=== PATIENT | female | born 1995 | race Two or more races ===

== ENCOUNTER 2020-06-05 03:55 | Inpatient (IN) | payer OTHER ==
[2020-06-05] MEDS ORDERED: SODIUM CHLORIDE 1,000 ML IV STA (05:00)
[2020-06-05] MEDS ORDERED: ONDANSETRON 4 MG/2 ML VIAL IVPUSH ONE (05:00)
[2020-06-05] MEDS ORDERED: ACETAMINOPHEN 1000 MG/100 ML VIAL (NON FORMULARY) IVPB ONE (05:01)
[2020-06-05] MEDS ORDERED: ONDANSETRON 4 MG/2 ML VIAL ONE (05:10)
[2020-06-05] MEDS ORDERED: ACETAMINOPHEN INJECTION 100 ML IVPB ONE (05:10)
[2020-06-05] MEDS ORDERED: MAG HYDROX/AL HYDROX/SIMETH -MYLANTA- ORAL SUSPENSION PO ONE (06:14)
[2020-06-05 06:29] LABS: BASO % 0.2 % (0-2.0); EOS % 0.4 % (0-4.5); HEMATOCRIT 44.8 % (32.4-45.2); HEMOGLOBIN 14.3 GM/dL (10.7-15.3); LYMPH % 7.8 % (8-40); MCH 26.7 pg (25.7-33.7); MCHC 31.9 g/dl (32.0-36.0); MEAN CELL VOLUME 83.7 fl (80-96); MEAN PLT VOLUME 8.4 fl (7.5-11.1); MONO % 6.5 % (3.8-10.2); NEUT % 85.1 % (42.8-82.8); PLATELET COUNT 208 K/MM3 (134-434); RBC 5.35 M/mm3 (3.60-5.2); RDW 18.7 % (11.6-15.6); WHITE BLOOD COUNT 16.4 K/mm3 (4.0-10.0)
[2020-06-05] MEDS ORDERED: MAG HYDROX/AL HYDROX/SIMETH 30 ML UNIT-DOSE CUP ONE (06:39)
[2020-06-05 06:45] LABS: EPI CELLS >36 /uL (0-25.1); HYALINE CASTS 5 /uL (0-3.1); PH,URINE 5.5 (5.0-8.0); URINE APPEARANCE CLOUDY; URINE BACTERIA 2300 /uL (0-1359); URINE BILIRUBIN NEGATIVE (NEGATIVE); URINE COLOR YELLOW; URINE GLUCOSE (UA) NEGATIVE (NEGATIVE); URINE KETONE 3+ (NEGATIVE); URINE LEUK ESTERASE NEGATIVE (NEGATIVE); URINE NITRITE NEGATIVE (NEGATIVE); URINE PROTEIN 1+ (NEGATIVE); URINE WBC 14 /uL (0-25.8); YEAST REVIEW (NEGATIVE)
[2020-06-05 06:56] LABS: URINE RBC 25 /uL (0-23.9)
[2020-06-05 07:14] LABS: CALCIUM 8.9 mg/dL (8.5-10.1)
[2020-06-05 07:15] LABS: ALBUMIN 3.5 g/dl (3.4-5.0); BLOOD UREA NITROGEN 6.1 mg/dL (7-18)
[2020-06-05 07:18] LABS: CREATININE 0.8 mg/dL (0.55-1.3)
[2020-06-05 07:19] LABS: BILIRUBIN,TOTAL 1.2 mg/dL (0.2-1); TOT PROT 7.8 g/dl (6.4-8.2)
[2020-06-05 07:26] LABS: POTASSIUM 6.3 mmol/L (3.5-5.1)
[2020-06-05] MEDS ORDERED: LACTATED RINGERS SOLUTION 1,000 ML/1,000 ML INFUS.BAG IV STA (07:28)
[2020-06-05] MEDS ORDERED: morphine CARPU-JECT 4 MG/1 ML DISP.SYRIN IVPUSH ONE ×2 (07:54→09:07)
[2020-06-05] MEDS ORDERED: morphine SULFATE 4 MG/ML VIAL ONE ×2 (07:56→09:07)
[2020-06-05 09:28] LABS: POTASSIUM 4.3 mmol/L (3.5-5.1)
[2020-06-05 09:30] LABS: CALCIUM 8.1 mg/dL (8.5-10.1)
[2020-06-05 09:31] LABS: ALBUMIN 3.3 g/dl (3.4-5.0); BLOOD UREA NITROGEN 4.8 mg/dL (7-18)
[2020-06-05 09:32] LABS: BILIRUBIN,DIRECT 0.1 mg/dL (0.0-0.2)
[2020-06-05 09:33] LABS: BILIRUBIN,DIRECT 0.2 mg/dL (0.0-0.2)
[2020-06-05 09:34] LABS: CREATININE 0.8 mg/dL (0.55-1.3)
[2020-06-05 09:35] LABS: BILIRUBIN,TOTAL 1.1 mg/dL (0.2-1); TOT PROT 6.8 g/dl (6.4-8.2)
[2020-06-05] MEDS ORDERED: PIPERACILLIN/TAZOB 3.375 GM 3.375 GM in DEXTROSE 5%-WATER - 50 ML IVPB ONE (09:51)
[2020-06-05] MEDS ORDERED: morphine CARPU-JECT 2 MG/1 ML DISP.SYRIN IVPUSH ONE (10:07)
[2020-06-05] MEDS ORDERED: PIPERACILLIN/TAZOB 3.375 GM 3.375 GM/50 ML BAG IVPB ONE (10:08)
[2020-06-05] MEDS ORDERED: MORPHINE SULFATE 2 MG/ML VIAL ONE (10:08)
[2020-06-05] MEDS ORDERED: LACTATED RINGERS SOLUTION 1,000 ML/1,000 ML INFUS.BAG IV ONE (11:00)
[2020-06-05] MEDS ORDERED: LACTATED RINGERS SOLUTION 1,000 ML/1,000 ML INFUS.BAG IV SCH (11:15)
[2020-06-05] MEDS ORDERED: HYDROmorphone HCL CARPU-JECT 2 MG/1 ML DISP.SYRIN IVPB ONE (12:31)
[2020-06-05] MEDS ORDERED: HYDROmorphone HCl 2 MG/ML VIAL ONE (12:33)
[2020-06-05] MEDS: LACTATED RINGERS SOLUTION 1,000 ML IV SCH ×2 (12:39→17:05)
[2020-06-05] MEDS: MORPHINE SULFATE 2 MG/ML VIAL IVPUSH PRN (17:00)
[2020-06-05] MEDS ORDERED: HYDROmorphone HCl 2 MG/ML VIAL IVPUSH ONE (18:03)
[2020-06-05] MEDS ORDERED: HYDROmorphone HCl 2 MG/ML VIAL IVPB ONE (18:37)
[2020-06-05] MEDS ORDERED: LORazepam 2 MG/ML SDV VIAL IVPUSH ONE (19:00)
[2020-06-05 20:13] VITALS: BMI 25.1
[2020-06-05] MEDS: CEFTRIAXONE 1 GM in DEXTROSE 5%-WATER - 50 ML IVPB SCH (21:08)
[2020-06-05 22:04] LABS: INR 1.21 (0.83-1.09); PROTHROMBIN TIME (PATIENT) 14.8 SEC (9.7-13.0)
[2020-06-05 22:07] LABS: ACTIVATED PTT 29.8 SECONDS (25.2-36.5)
[2020-06-06] MEDS ORDERED: SIMETHICONE 80 MG TAB.CHEW (FP) PO ONE (00:33)
[2020-06-06] MEDS: MORPHINE SULFATE 2 MG/ML VIAL IVPUSH PRN ×6 (00:36→21:57)
[2020-06-06] MEDS: LACTATED RINGERS SOLUTION 1,000 ML IV SCH ×2 (05:47→11:59)
[2020-06-06 07:03] LABS: COCAINE, UR NEGATIVE ng/ml (CUTOFF=300)
[2020-06-06 07:04] LABS: PHENCYCLIDINE,URINE NEGATIVE ng/ml (CUTOFF=25)
[2020-06-06 07:22] LABS: METHADONE, UR NEGATIVE ng/ml (CUTOFF=300); URINE AMPHETAMINES NEGATIVE ng/ml (CUTOFF=500); URINE BARBITURATES NEGATIVE ng/ml (CUTOFF=200); URINE BENZODIAZEPINES NEGATIVE ng/ml (CUTOFF=200)
[2020-06-06 07:42] LABS: OPIATES, URI POSITIVE ng/ml (CUTOFF=300)
[2020-06-06 09:36] LABS: HEMATOCRIT 38.1 % (32.4-45.2); MCH 26.3 pg (25.7-33.7); MCHC 31.5 g/dl (32.0-36.0); MEAN CELL VOLUME 83.7 fl (80-96); MEAN PLT VOLUME 8.1 fl (7.5-11.1); PLATELET COUNT 94 K/MM3 (134-434); RBC 4.56 M/mm3 (3.60-5.2); RDW 18.7 % (11.6-15.6); WHITE BLOOD COUNT 15.5 K/mm3 (4.0-10.0)
[2020-06-06 09:43] LABS: INR 1.47 (0.83-1.09); PROTHROMBIN TIME (PATIENT) 17.6 SEC (9.7-13.0)
[2020-06-06 09:45] LABS: ACTIVATED PTT 30.2 SECONDS (25.2-36.5)
[2020-06-06 09:58] LABS: POTASSIUM 3.2 mmol/L (3.5-5.1)
[2020-06-06 10:01] LABS: BLOOD UREA NITROGEN 4.1 mg/dL (7-18)
[2020-06-06 10:02] LABS: ALBUMIN 2.6 g/dl (3.4-5.0)
[2020-06-06 10:04] LABS: MAGNESIUM 1.1 mg/dL (1.8-2.4)
[2020-06-06 10:06] LABS: CREATININE 0.8 mg/dL (0.55-1.3)
[2020-06-06 10:07] LABS: BILIRUBIN,TOTAL 2.5 mg/dL (0.2-1); PHOSPHOROUS 1.7 mg/dL (2.5-4.9); TOT PROT 5.3 g/dl (6.4-8.2)
[2020-06-06] MEDS ORDERED: MAGNESIUM SULF 50% (8.12 MEQ/2 ML-1 GM VIAL) IVPB ONE (10:15)
[2020-06-06] MEDS ORDERED: DEXTROSE 50%-WATER 25 GM/50 ML DISP.SYRIN IVPUSH ONE (10:15)
[2020-06-06] MEDS: CEFTRIAXONE 1 GM in DEXTROSE 5%-WATER - 50 ML IVPB SCH (10:21)
[2020-06-06 10:23] LABS: CALCIUM 6.7 mg/dL (8.5-10.1)
[2020-06-06] MEDS: KCL 10 MEQ IVPB 10 MEQ/100 ML INFUS.BAG IVPB SCH ×3 (14:46→21:57)
[2020-06-07] MEDS: MORPHINE SULFATE 2 MG/ML VIAL IVPUSH PRN (01:53)
[2020-06-07] MEDS: LACTATED RINGERS SOLUTION 1,000 ML IV SCH ×3 (09:27→14:29)
[2020-06-07] MEDS: CEFTRIAXONE 1 GM in DEXTROSE 5%-WATER - 50 ML IVPB SCH (09:27)
[2020-06-07] MEDS: IBUPROFEN 800 MG/8 ML IJ IVPB PRN (11:14)
[2020-06-07 11:56] LABS: BASO % 0.2 % (0-2.0); EOS % 0.2 % (0-4.5); HEMATOCRIT 39.2 % (32.4-45.2); HEMOGLOBIN 12.4 GM/dL (10.7-15.3); LYMPH % 4.4 % (8-40); MCH 26.3 pg (25.7-33.7); MCHC 31.7 g/dl (32.0-36.0); MEAN CELL VOLUME 83.1 fl (80-96); MEAN PLT VOLUME 8.3 fl (7.5-11.1); MONO % 5.2 % (3.8-10.2); PLATELET COUNT 87 K/MM3 (134-434); RBC 4.71 M/mm3 (3.60-5.2); RDW 18.6 % (11.6-15.6); WHITE BLOOD COUNT 15.6 K/mm3 (4.0-10.0)
[2020-06-07 12:03] LABS: INR 1.15 (0.83-1.09); PROTHROMBIN TIME (PATIENT) 14.1 SEC (9.7-13.0)
[2020-06-07 12:05] LABS: ACTIVATED PTT 31.6 SECONDS (25.2-36.5)
[2020-06-07 12:15] LABS: POTASSIUM 3.4 mmol/L (3.5-5.1)
[2020-06-07 12:20] LABS: ALBUMIN 2.5 g/dl (3.4-5.0); BLOOD UREA NITROGEN 5.7 mg/dL (7-18); MAGNESIUM 1.8 mg/dL (1.8-2.4)
[2020-06-07 12:23] LABS: BILIRUBIN,DIRECT 1.3 mg/dL (0.0-0.2); CREATININE 0.7 mg/dL (0.55-1.3)
[2020-06-07 12:25] LABS: BILIRUBIN,TOTAL 2.8 mg/dL (0.2-1); TOT PROT 5.2 g/dl (6.4-8.2)
[2020-06-07] MEDS ORDERED: POTASSIUM CHLORIDE TABS 20 MEQ TABLET.ER (FP) PO ONE (12:45)
[2020-06-07] MEDS ORDERED: CALCIUM GLUCONATE 10% - 1,000 MG/10 ML VIAL IVPUSH ONE (13:00)
[2020-06-07 13:15] LABS: CALCIUM 6.5 mg/dL (8.5-10.1); PHOSPHOROUS 0.4 mg/dL (2.5-4.9)
[2020-06-07] MEDS ORDERED: POTASSIUM PHOSPHATE 30 MM in SODIUM CHLORIDE 500 ML IVPB ONE ×2 (13:30→23:00)
[2020-06-07] MEDS ORDERED: CALCIUM GLUCONATE 10% - 1,000 MG/10 ML VIAL IVPB ONE (13:30)
[2020-06-07 14:25] LABS: PLATELET ESTIMATE DECREASED
[2020-06-07 14:49] LABS: EPI CELLS 19 /uL (0-25.1); HYALINE CASTS 1 /uL (0-3.1); URINE APPEARANCE CLEAR; URINE BACTERIA 32 /uL (0-1359); URINE BILIRUBIN NEGATIVE (NEGATIVE); URINE COLOR DK YELLOW; URINE GLUCOSE (UA) NEGATIVE (NEGATIVE); URINE KETONE TRACE (NEGATIVE); URINE LEUK ESTERASE NEGATIVE (NEGATIVE); URINE NITRITE NEGATIVE (NEGATIVE); URINE PROTEIN TRACE (NEGATIVE); URINE RBC 9 /uL (0-23.9); URINE WBC 6 /uL (0-25.8)
[2020-06-07 22:24] LABS: POTASSIUM 3.6 mmol/L (3.5-5.1)
[2020-06-07 22:26] LABS: BLOOD UREA NITROGEN 6.2 mg/dL (7-18)
[2020-06-07 22:29] LABS: CREATININE 0.5 mg/dL (0.55-1.3); PHOSPHOROUS 1.2 mg/dL (2.5-4.9)
[2020-06-07 22:32] LABS: CALCIUM 6.7 mg/dL (8.5-10.1)
[2020-06-08] MEDS ORDERED: POTASSIUM PHOSPHATE 30 MM in SODIUM CHLORIDE 500 ML IVPB ONE (02:45)
[2020-06-08] MEDS: KCL 10 MEQ IVPB 10 MEQ/100 ML INFUS.BAG IVPB SCH ×2 (04:04→06:26)
[2020-06-08] MEDS: IBUPROFEN 800 MG/8 ML IJ IVPB PRN ×2 (04:22→20:47)
[2020-06-08 08:35] LABS: INR 1.15 (0.83-1.09); PROTHROMBIN TIME (PATIENT) 13.9 SEC (9.7-13.0)
[2020-06-08 08:38] LABS: ACTIVATED PTT 31.9 SECONDS (25.2-36.5)
[2020-06-08 08:39] LABS: POTASSIUM 3.8 mmol/L (3.5-5.1)
[2020-06-08 08:44] LABS: BASO % 0.3 % (0-2.0); EOS % 0.5 % (0-4.5); HEMATOCRIT 31.8 % (32.4-45.2); HEMOGLOBIN 10.2 GM/dL (10.7-15.3); LYMPH % 5.9 % (8-40); MCH 26.6 pg (25.7-33.7); MEAN PLT VOLUME 8.3 fl (7.5-11.1); MONO % 6.1 % (3.8-10.2); NEUT % 87.2 % (42.8-82.8); PLATELET COUNT 89 K/MM3 (134-434); RBC 3.84 M/mm3 (3.60-5.2); RDW 18.4 % (11.6-15.6); WHITE BLOOD COUNT 12.7 K/mm3 (4.0-10.0)
[2020-06-08 08:58] LABS: ALBUMIN 2.1 g/dl (3.4-5.0); BLOOD UREA NITROGEN 4.9 mg/dL (7-18); MAGNESIUM 1.9 mg/dL (1.8-2.4)
[2020-06-08 09:01] LABS: CREATININE 0.4 mg/dL (0.55-1.3)
[2020-06-08 09:03] LABS: TOT PROT 4.6 g/dl (6.4-8.2)
[2020-06-08] MEDS: CEFTRIAXONE 1 GM in DEXTROSE 5%-WATER - 50 ML IVPB SCH (09:47)
[2020-06-08 10:41] LABS: CALCIUM 6.5 mg/dL (8.5-10.1)
[2020-06-08] MEDS ORDERED: CALCIUM GLUCONATE 10% - 1,000 MG/10 ML VIAL IVPB ONE (12:00)
[2020-06-08] MEDS: NAPH,MB-DB/K PH,MBDB POWDER PACKET PO SCH ×2 (13:59→21:37)
[2020-06-08 15:38] LABS: ANISOCYTOSIS 0; MACROCYTOSIS 0; PLATELET ESTIMATE DECREASED; TARGET CELLS 1+
[2020-06-08] MEDS: LACTATED RINGERS SOLUTION 1,000 ML IV SCH (15:39)
[2020-06-09] MEDS: CEFTRIAXONE 1 GM in DEXTROSE 5%-WATER - 50 ML IVPB SCH (09:15)
[2020-06-09] MEDS: NAPH,MB-DB/K PH,MBDB POWDER PACKET PO SCH ×2 (09:15→21:15)
[2020-06-09] MEDS: IBUPROFEN 800 MG/8 ML IJ IVPB PRN ×2 (10:09→21:14)
[2020-06-09 13:22] LABS: BASO % 0.2 % (0-2.0); EOS % 0.8 % (0-4.5); HEMATOCRIT 28.8 % (32.4-45.2); HEMOGLOBIN 9.1 GM/dL (10.7-15.3); LYMPH % 5.7 % (8-40); MCH 26.3 pg (25.7-33.7); MCHC 31.7 g/dl (32.0-36.0); MEAN CELL VOLUME 82.8 fl (80-96); MEAN PLT VOLUME 7.5 fl (7.5-11.1); NEUT % 87.3 % (42.8-82.8); PLATELET COUNT 110 K/MM3 (134-434); RBC 3.48 M/mm3 (3.60-5.2); RDW 19.1 % (11.6-15.6); WHITE BLOOD COUNT 12.7 K/mm3 (4.0-10.0)
[2020-06-09 13:44] LABS: POTASSIUM 3.7 mmol/L (3.5-5.1)
[2020-06-09 13:46] LABS: BLOOD UREA NITROGEN 4.1 mg/dL (7-18); MAGNESIUM 1.8 mg/dL (1.8-2.4)
[2020-06-09 13:49] LABS: CREATININE 0.3 mg/dL (0.55-1.3); PHOSPHOROUS 1.9 mg/dL (2.5-4.9)
[2020-06-09 13:51] LABS: BILIRUBIN,TOTAL 1.2 mg/dL (0.2-1); TOT PROT 4.5 g/dl (6.4-8.2)
[2020-06-09] MEDS: FOLIC ACID 1 MG TABLET (FP) PO SCH (14:07)
[2020-06-09] MEDS: MULTIVITAMINS (DAILY MVI) TABLET (FP) PO SCH (14:07)
[2020-06-09] MEDS: LACTATED RINGERS SOLUTION 1,000 ML IV SCH (14:07)
[2020-06-09 14:08] LABS: CALCIUM 6.7 mg/dL (8.5-10.1)
[2020-06-09] MEDS ORDERED: LACTATED RINGERS SOLUTION 1,000 ML IV SCH (14:17)
[2020-06-09] MEDS ORDERED: CALCIUM GLUCONATE 10% - 1,000 MG/10 ML VIAL IVPUSH ONE (14:20)
[2020-06-09] MEDS ORDERED: CALCIUM GLUCONATE 10% - 1,000 MG/10 ML VIAL IVPB ONE (15:30)
[2020-06-09 16:04] LABS: ANISOCYTOSIS 1+; MACROCYTOSIS 0; PLATELET ESTIMATE DECREASED; TEAR DROP CELLS 1+
[2020-06-09] MEDS ORDERED: ZOLPIDEM TARTRATE 5 MG TABLET PO PRN (16:19)
[2020-06-09] MEDS: THIAMINE HCL 100 MG TABLET (FP) PO SCH (17:50)
[2020-06-10] MEDS: IBUPROFEN 800 MG/8 ML IJ IVPB PRN (05:01)
[2020-06-10] MEDS ORDERED: MEROPENEM 1 GM in DEXTROSE 5%-WATER 100 ML IVPB ONE (08:05)
[2020-06-10 09:27] LABS: BASO % 0.1 % (0-2.0); EOS % 1.2 % (0-4.5); HEMATOCRIT 31.7 % (32.4-45.2); HEMOGLOBIN 10.1 GM/dL (10.7-15.3); LYMPH % 8.2 % (8-40); MCH 25.9 pg (25.7-33.7); MCHC 31.7 g/dl (32.0-36.0); MEAN CELL VOLUME 81.8 fl (80-96); MEAN PLT VOLUME 7.3 fl (7.5-11.1); MONO % 10.2 % (3.8-10.2); NEUT % 80.3 % (42.8-82.8); PLATELET COUNT 150 K/MM3 (134-434); RBC 3.88 M/mm3 (3.60-5.2); RDW 18.6 % (11.6-15.6); WHITE BLOOD COUNT 14.1 K/mm3 (4.0-10.0)
[2020-06-10 09:34] LABS: INR 1.11 (0.83-1.09); PROTHROMBIN TIME (PATIENT) 13.4 SEC (9.7-13.0)
[2020-06-10 09:47] LABS: POTASSIUM 3.3 mmol/L (3.5-5.1)
[2020-06-10] MEDS: THIAMINE HCL 100 MG TABLET (FP) PO SCH (09:53)
[2020-06-10] MEDS: CEFTRIAXONE 1 GM in DEXTROSE 5%-WATER - 50 ML IVPB SCH (09:53)
[2020-06-10] MEDS: MULTIVITAMINS (DAILY MVI) TABLET (FP) PO SCH (09:54)
[2020-06-10] MEDS: NAPH,MB-DB/K PH,MBDB POWDER PACKET PO SCH ×2 (09:54→21:17)
[2020-06-10] MEDS: FOLIC ACID 1 MG TABLET (FP) PO SCH (09:54)
[2020-06-10] MEDS: LACTATED RINGERS SOLUTION 1,000 ML IV SCH (09:55)
[2020-06-10 09:59] LABS: AMYLASE 74 U/L (25-115); LIPASE 304 U/L (73-393)
[2020-06-10 10:10] LABS: CALCIUM 7.7 mg/dL (8.5-10.1)
[2020-06-10 10:11] LABS: ALBUMIN 2.3 g/dl (3.4-5.0); BLOOD UREA NITROGEN 3.6 mg/dL (7-18); MAGNESIUM 1.8 mg/dL (1.8-2.4)
[2020-06-10 10:14] LABS: CREATININE 0.3 mg/dL (0.55-1.3); PHOSPHOROUS 2.2 mg/dL (2.5-4.9)
[2020-06-10 10:15] LABS: TOT PROT 5.2 g/dl (6.4-8.2)
[2020-06-10 10:30] LABS: BILIRUBIN,TOTAL 1.6 mg/dL (0.2-1)
[2020-06-10 13:29] LABS: ANISOCYTOSIS 1+; MACROCYTOSIS 1+; PLATELET ESTIMATE DECREASED; TARGET CELLS 2+
[2020-06-10] MEDS ORDERED: POTASSIUM CHLORIDE ORAL LIQUID 20 MEQ/15 ML PO ONE (14:09)
[2020-06-10] MEDS ORDERED: ACETAMINOPHEN 325 MG TABLET (FP) PO ONE (20:12)
[2020-06-11 09:10] LABS: BASO % 0.1 % (0-2.0); EOS % 1.1 % (0-4.5); HEMATOCRIT 31.2 % (32.4-45.2); HEMOGLOBIN 10.1 GM/dL (10.7-15.3); LYMPH % 8.5 % (8-40); MCH 26.3 pg (25.7-33.7); MCHC 32.2 g/dl (32.0-36.0); MEAN CELL VOLUME 81.5 fl (80-96); MEAN PLT VOLUME 7.1 fl (7.5-11.1); MONO % 13.9 % (3.8-10.2); NEUT % 76.4 % (42.8-82.8); PLATELET COUNT 230 K/MM3 (134-434); RBC 3.83 M/mm3 (3.60-5.2); RDW 18.6 % (11.6-15.6); WHITE BLOOD COUNT 16.8 K/mm3 (4.0-10.0)
[2020-06-11 09:30] LABS: POTASSIUM 3.5 mmol/L (3.5-5.1)
[2020-06-11 09:33] LABS: CALCIUM 7.6 mg/dL (8.5-10.1)
[2020-06-11 09:34] LABS: ALBUMIN 2.4 g/dl (3.4-5.0)
[2020-06-11 09:37] LABS: CREATININE 0.3 mg/dL (0.55-1.3); PHOSPHOROUS 2.8 mg/dL (2.5-4.9)
[2020-06-11 09:38] LABS: BILIRUBIN,TOTAL 0.8 mg/dL (0.2-1)
[2020-06-11 09:39] LABS: TOT PROT 5.7 g/dl (6.4-8.2)
[2020-06-11 09:59] LABS: MAGNESIUM 1.8 mg/dL (1.8-2.4)
[2020-06-11 10:14] LABS: BLOOD UREA NITROGEN 2.4 mg/dL (7-18)
[2020-06-11] MEDS: MULTIVITAMINS (DAILY MVI) TABLET (FP) PO SCH (10:18)
[2020-06-11] MEDS: FOLIC ACID 1 MG TABLET (FP) PO SCH (10:18)
[2020-06-11] MEDS: NAPH,MB-DB/K PH,MBDB POWDER PACKET PO SCH ×2 (10:18→21:15)
[2020-06-11] MEDS: LACTATED RINGERS SOLUTION 1,000 ML IV SCH (10:19)
[2020-06-11] MEDS: THIAMINE HCL 100 MG TABLET (FP) PO SCH (10:19)
[2020-06-11 11:04] LABS: ANISOCYTOSIS 0; MACROCYTOSIS 0; PLATELET ESTIMATE NORMAL; TARGET CELLS 2+
[2020-06-11] MEDS: CEFTRIAXONE 1 GM in DEXTROSE 5%-WATER - 50 ML IVPB SCH (12:46)
[2020-06-11] MEDS ORDERED: PIPERACILLIN/TAZOB 3.375 GM 3.375 GM in DEXTROSE 5%-WATER - 50 ML IVPB SCH (20:30)
[2020-06-11] MEDS: ACETAMINOPHEN 325 MG TABLET (FP) PO PRN (21:15)
[2020-06-11] MEDS: PIPERACILLIN/TAZOB 3.375 GM 3.375 GM in DEXTROSE 5%-WATER - 50 ML IVPB SCH (21:46)
[2020-06-12] MEDS: PIPERACILLIN/TAZOB 3.375 GM 3.375 GM in DEXTROSE 5%-WATER - 50 ML IVPB SCH ×3 (02:54→17:36)
[2020-06-12 08:40] LABS: BASO % 0.2 % (0-2.0); EOS % 0.7 % (0-4.5); HEMATOCRIT 27.5 % (32.4-45.2); LYMPH % 7.5 % (8-40); MCH 26.4 pg (25.7-33.7); MCHC 32.8 g/dl (32.0-36.0); MEAN CELL VOLUME 80.4 fl (80-96); MONO % 14.6 % (3.8-10.2); PLATELET COUNT 247 K/MM3 (134-434); RBC 3.42 M/mm3 (3.60-5.2); RDW 18.5 % (11.6-15.6); WHITE BLOOD COUNT 14.2 K/mm3 (4.0-10.0)
[2020-06-12 08:49] LABS: POTASSIUM 3.3 mmol/L (3.5-5.1)
[2020-06-12 08:53] LABS: ALBUMIN 2.1 g/dl (3.4-5.0)
[2020-06-12 08:54] LABS: CALCIUM 7.4 mg/dL (8.5-10.1)
[2020-06-12 08:55] LABS: MAGNESIUM 1.9 mg/dL (1.8-2.4)
[2020-06-12 08:58] LABS: CREATININE 0.3 mg/dL (0.55-1.3); PHOSPHOROUS 3.5 mg/dL (2.5-4.9)
[2020-06-12 08:59] LABS: BILIRUBIN,TOTAL 0.7 mg/dL (0.2-1); TOT PROT 4.9 g/dl (6.4-8.2)
[2020-06-12 09:52] LABS: ANISOCYTOSIS 2+; MACROCYTOSIS 0; PLATELET ESTIMATE NORMAL; TARGET CELLS 2+; TEAR DROP CELLS 1+
[2020-06-12] MEDS: LACTATED RINGERS SOLUTION 1,000 ML IV SCH (11:07)
[2020-06-12] MEDS: THIAMINE HCL 100 MG TABLET (FP) PO SCH (11:08)
[2020-06-12] MEDS: MULTIVITAMINS (DAILY MVI) TABLET (FP) PO SCH (11:08)
[2020-06-12] MEDS: FOLIC ACID 1 MG TABLET (FP) PO SCH (11:08)
[2020-06-12] MEDS: NAPH,MB-DB/K PH,MBDB POWDER PACKET PO SCH ×2 (11:08→21:04)
[2020-06-12] MEDS ORDERED: CHOLESTYRAMINE/SUCROSE 4 GM PACKET PO SCH (13:15)
[2020-06-12] MEDS ORDERED: CHOLESTYRAMINE/ASPARTAME 4 GM PACKET PO SCH (14:02)
[2020-06-13] MEDS: PIPERACILLIN/TAZOB 3.375 GM 3.375 GM in DEXTROSE 5%-WATER - 50 ML IVPB SCH ×4 (03:15→17:48)
[2020-06-13 08:24] LABS: BASO % 0.1 % (0-2.0); EOS % 0.5 % (0-4.5); HEMATOCRIT 31.9 % (32.4-45.2); HEMOGLOBIN 10.1 GM/dL (10.7-15.3); LYMPH % 9.3 % (8-40); MCH 25.9 pg (25.7-33.7); MCHC 31.7 g/dl (32.0-36.0); MEAN CELL VOLUME 81.9 fl (80-96); MEAN PLT VOLUME 7.3 fl (7.5-11.1); NEUT % 80.1 % (42.8-82.8); PLATELET COUNT 358 K/MM3 (134-434); RDW 18.4 % (11.6-15.6); WHITE BLOOD COUNT 14.6 K/mm3 (4.0-10.0)
[2020-06-13 08:33] LABS: INR 1.2 (0.83-1.09); PROTHROMBIN TIME (PATIENT) 14.7 SEC (9.7-13.0)
[2020-06-13 08:42] LABS: POTASSIUM 3.5 mmol/L (3.5-5.1)
[2020-06-13 08:44] LABS: CALCIUM 8.3 mg/dL (8.5-10.1)
[2020-06-13 08:45] LABS: ALBUMIN 2.5 g/dl (3.4-5.0); MAGNESIUM 2.1 mg/dL (1.8-2.4)
[2020-06-13 08:48] LABS: CREATININE 0.4 mg/dL (0.55-1.3)
[2020-06-13 08:49] LABS: IRON SERUM 20 ug/dL (50-175); TOTAL IRON BINDING CAPACITY 168 ug/dL (250-450)
[2020-06-13 08:50] LABS: BILIRUBIN,TOTAL 0.7 mg/dL (0.2-1)
[2020-06-13 08:55] LABS: BLOOD UREA NITROGEN 2.6 mg/dL (7-18)
[2020-06-13] MEDS: THIAMINE HCL 100 MG TABLET (FP) PO SCH (10:20)
[2020-06-13] MEDS: NAPH,MB-DB/K PH,MBDB POWDER PACKET PO SCH ×2 (10:20→22:05)
[2020-06-13] MEDS: LACTATED RINGERS SOLUTION 1,000 ML IV SCH (10:21)
[2020-06-13] MEDS: MULTIVITAMINS (DAILY MVI) TABLET (FP) PO SCH (10:21)
[2020-06-13] MEDS: FOLIC ACID 1 MG TABLET (FP) PO SCH (10:21)
[2020-06-13 10:24] LABS: ANISOCYTOSIS 0; MACROCYTOSIS 1+; PLATELET ESTIMATE NORMAL; TARGET CELLS 1+
[2020-06-13] MEDS ORDERED: IRON SUCROSE INJECTION 200 MG in SODIUM CHLORIDE 90 ML IVPB ONE (14:31)
[2020-06-13] MEDS: ACETAMINOPHEN 325 MG TABLET (FP) PO PRN (18:40)
[2020-06-14] MEDS: PIPERACILLIN/TAZOB 3.375 GM 3.375 GM in DEXTROSE 5%-WATER - 50 ML IVPB SCH ×3 (02:10→17:09)
[2020-06-14] MEDS: MULTIVITAMINS (DAILY MVI) TABLET (FP) PO SCH (09:47)
[2020-06-14] MEDS: THIAMINE HCL 100 MG TABLET (FP) PO SCH (09:47)
[2020-06-14] MEDS: FOLIC ACID 1 MG TABLET (FP) PO SCH (09:47)
[2020-06-14] MEDS: NAPH,MB-DB/K PH,MBDB POWDER PACKET PO SCH ×2 (09:47→21:00)
[2020-06-14 10:09] LABS: BASO % 0.5 % (0-2.0); EOS % 0.6 % (0-4.5); HEMATOCRIT 30.6 % (32.4-45.2); HEMOGLOBIN 9.7 GM/dL (10.7-15.3); LYMPH % 5.9 % (8-40); MCH 26.1 pg (25.7-33.7); MCHC 31.8 g/dl (32.0-36.0); MEAN CELL VOLUME 82.1 fl (80-96); MEAN PLT VOLUME 7.4 fl (7.5-11.1); MONO % 7.2 % (3.8-10.2); NEUT % 85.8 % (42.8-82.8); PLATELET COUNT 455 K/MM3 (134-434); RBC 3.73 M/mm3 (3.60-5.2); RDW 19.1 % (11.6-15.6); WHITE BLOOD COUNT 19.6 K/mm3 (4.0-10.0)
[2020-06-14 10:32] LABS: CALCIUM 8.5 mg/dL (8.5-10.1)
[2020-06-14 10:36] LABS: ALBUMIN 2.5 g/dl (3.4-5.0); CREATININE 0.5 mg/dL (0.55-1.3)
[2020-06-14 10:37] LABS: BILIRUBIN,TOTAL 0.7 mg/dL (0.2-1); TOT PROT 5.9 g/dl (6.4-8.2)
[2020-06-14 11:00] LABS: BLOOD UREA NITROGEN 2.2 mg/dL (7-18)
[2020-06-14 11:59] LABS: ANISOCYTOSIS 0; MACROCYTOSIS 0; OVALOCYTE 1+; PLATELET ESTIMATE NORMAL; TARGET CELLS 1+
[2020-06-15] MEDS: PIPERACILLIN/TAZOB 3.375 GM 3.375 GM in DEXTROSE 5%-WATER - 50 ML IVPB SCH (02:16)
[2020-06-15 08:46] LABS: BASO % 0.1 % (0-2.0); EOS % 0.4 % (0-4.5); HEMATOCRIT 28.9 % (32.4-45.2); HEMOGLOBIN 9.3 GM/dL (10.7-15.3); LYMPH % 5.2 % (8-40); MCH 26.4 pg (25.7-33.7); MCHC 32.3 g/dl (32.0-36.0); MEAN CELL VOLUME 81.6 fl (80-96); MEAN PLT VOLUME 7.6 fl (7.5-11.1); MONO % 8.2 % (3.8-10.2); NEUT % 86.1 % (42.8-82.8); PLATELET COUNT 571 K/MM3 (134-434); RBC 3.54 M/mm3 (3.60-5.2); RDW 19.1 % (11.6-15.6); WHITE BLOOD COUNT 21.4 K/mm3 (4.0-10.0)
[2020-06-15 09:03] LABS: POTASSIUM 3.9 mmol/L (3.5-5.1)
[2020-06-15 09:14] LABS: ALBUMIN 2.5 g/dl (3.4-5.0); CALCIUM 8.5 mg/dL (8.5-10.1)
[2020-06-15 09:17] LABS: CREATININE 0.5 mg/dL (0.55-1.3)
[2020-06-15 09:18] LABS: BILIRUBIN,TOTAL 0.9 mg/dL (0.2-1)
[2020-06-15 09:19] LABS: TOT PROT 5.9 g/dl (6.4-8.2)
[2020-06-15 09:40] LABS: BLOOD UREA NITROGEN 2.1 mg/dL (7-18)
[2020-06-15 10:13] LABS: ANISOCYTOSIS 2+; MACROCYTOSIS 0; PLATELET ESTIMATE INCREASED; TARGET CELLS 2+
[2020-06-15] MEDS: NAPH,MB-DB/K PH,MBDB POWDER PACKET PO SCH ×2 (11:04→21:02)
[2020-06-15] MEDS: FOLIC ACID 1 MG TABLET (FP) PO SCH (11:05)
[2020-06-15] MEDS: MULTIVITAMINS (DAILY MVI) TABLET (FP) PO SCH (11:05)
[2020-06-15] MEDS: IMIPENEM/CILASTATIN SODIUM 500 MG in SODIUM CHLORIDE 100 ML IVPB SCH ×2 (11:05→17:44)
[2020-06-15] MEDS: THIAMINE HCL 100 MG TABLET (FP) PO SCH (11:05)
[2020-06-15] MEDS: LACTATED RINGERS SOLUTION 1,000 ML/1,000 ML INFUS.BAG IV SCH (15:44)
[2020-06-15] MEDS ORDERED: LACTATED RINGERS SOLUTION 1,000 ML/1,000 ML INFUS.BAG IV SCH (15:45)
[2020-06-16] MEDS: IMIPENEM/CILASTATIN SODIUM 500 MG in SODIUM CHLORIDE 100 ML IVPB SCH ×3 (01:43→17:09)
[2020-06-16 09:13] LABS: BASO % 0.4 % (0-2.0); EOS % 0.5 % (0-4.5); HEMOGLOBIN 8.5 GM/dL (10.7-15.3); MCH 25.9 pg (25.7-33.7); MCHC 31.5 g/dl (32.0-36.0); MEAN CELL VOLUME 82.4 fl (80-96); MONO % 8.8 % (3.8-10.2); NEUT % 83.3 % (42.8-82.8); PLATELET COUNT 540 K/MM3 (134-434); RBC 3.28 M/mm3 (3.60-5.2); RDW 18.8 % (11.6-15.6)
[2020-06-16 09:16] LABS: CHLORIDE 106 mmol/L (98-107); POTASSIUM 3.9 mmol/L (3.5-5.1); SODIUM 139 mmol/L (136-145)
[2020-06-16 09:18] LABS: CALCIUM 8.3 mg/dL (8.5-10.1)
[2020-06-16 09:19] LABS: ALBUMIN 2.2 g/dl (3.4-5.0); ANION GAP 6 MMOL/L (8-16); CO2 28 mmol/L (21-32); GLUCOSE,RANDOM 78 mg/dL (74-106)
[2020-06-16 09:22] LABS: CREATININE 0.4 mg/dL (0.55-1.3); SGOT/AST 17 U/L (15-37); SGPT/ALT 11 U/L (13-61)
[2020-06-16 09:23] LABS: BILIRUBIN,TOTAL 0.6 mg/dL (0.2-1); TOT PROT 5.5 g/dl (6.4-8.2)
[2020-06-16 09:25] LABS: ALK PHOS 92 U/L (45-117)
[2020-06-16 09:32] LABS: BLOOD UREA NITROGEN < 1.0 mg/dL (7-18)
[2020-06-16] MEDS: FOLIC ACID 1 MG TABLET (FP) PO SCH (09:34)
[2020-06-16] MEDS: MULTIVITAMINS (DAILY MVI) TABLET (FP) PO SCH (09:34)
[2020-06-16] MEDS: NAPH,MB-DB/K PH,MBDB POWDER PACKET PO SCH (09:34)
[2020-06-16] MEDS: THIAMINE HCL 100 MG TABLET (FP) PO SCH (09:34)
[2020-06-16] MEDS ORDERED: FERROUS SO4 325 MG TABLET (FP) PO SCH (14:30)
[2020-06-16] MEDS: LACTATED RINGERS SOLUTION 1,000 ML/1,000 ML INFUS.BAG IV SCH (15:11)
[2020-06-16 23:13] VITALS: BP 132/79; PULSE 117; TEMP 99
== END 2020-06-16 21:00 | disposition short-term general hospital (02) | DRG 282 ==
LOC: JER 03:55 → JERBED 11:27 → J5WEST-2 16:38
DX: K85.20 Alcohol induced acute pancreatitis without necrosis or infection (principal); A41.9 Sepsis, unspecified organism; E83.42 Hypomagnesemia; E83.51 Hypocalcemia; R18.8 Other ascites; F10.10 Alcohol abuse, uncomplicated; K86.3 Pseudocyst of pancreas; N80.9 Endometriosis, unspecified; E87.6 Hypokalemia; N83.201 Unspecified ovarian cyst, right side; R94.5 Abnormal results of liver function studies; K76.0 Fatty (change of) liver, not elsewhere classified; J98.11 Atelectasis; E66.9 Obesity, unspecified; Z68.25 Body mass index [BMI] 25.0-25.9, adult; R19.7 Diarrhea, unspecified; D50.9 Iron deficiency anemia, unspecified
CPT/HCPCS: 36415; 71045-TC-FY; 74170-TC; 74176-TC; 74178-TC; 74181-TC; 76705-TC; 76830-TC; 80048; 80053; 80061; 80076; 80307; 81003; 82150; 82248; 82330; 82787; 82962; 83036; 83540; 83550; 83690; 83721; 83735; 84100; 84439; 84443; 84703; 85025; 85027; 85610; 85730; 86038; 86140; 87040; 87045; 87046; 87086; 87324; 87449; 94010; 99285-25; C9803; J0131; J1756; Q9967; U0003

== ENCOUNTER 2020-06-27 16:17 | Inpatient (IN) | payer OTHER ==
[2020-06-27 16:29] VITALS: BMI 24.0
[2020-06-27] MEDS ORDERED: ACETAMINOPHEN 1000 MG/100 ML VIAL (NON FORMULARY) IVPB ONE (16:33)
[2020-06-27] MEDS ORDERED: morphine CARPU-JECT 4 MG/1 ML DISP.SYRIN IVPUSH ONE ×2 (16:33→20:32)
[2020-06-27] MEDS ORDERED: morphine SULFATE 4 MG/ML VIAL ONE ×2 (16:41→21:50)
[2020-06-27] MEDS ORDERED: ACETAMINOPHEN INJECTION 100 ML IVPB ONE (16:42)
[2020-06-27] MEDS ORDERED: SODIUM CHLORIDE 1,000 ML IV SCH (16:45)
[2020-06-27 17:03] LABS: BASO % 1.8 % (0-2.0); EOS % 1.8 % (0-4.5); HEMATOCRIT 39.2 % (32.4-45.2); HEMOGLOBIN 12.2 GM/dL (10.7-15.3); LYMPH % 14.4 % (8-40); MCHC 31.1 g/dl (32.0-36.0); MEAN CELL VOLUME 83.5 fl (80-96); MEAN PLT VOLUME 7.4 fl (7.5-11.1); MONO % 5.8 % (3.8-10.2); NEUT % 76.2 % (42.8-82.8); PLATELET COUNT 625 K/MM3 (134-434); RBC 4.69 M/mm3 (3.60-5.2); RDW 18.3 % (11.6-15.6)
[2020-06-27 17:08] LABS: INR 1.08 (0.83-1.09)
[2020-06-27 17:11] LABS: ACTIVATED PTT 32.7 SECONDS (25.2-36.5)
[2020-06-27 17:12] LABS: POTASSIUM 3.8 mmol/L (3.5-5.1)
[2020-06-27 17:17] LABS: ALBUMIN 3.6 g/dl (3.4-5.0); BLOOD UREA NITROGEN 6.9 mg/dL (7-18); CALCIUM 9.5 mg/dL (8.5-10.1); MAGNESIUM 1.8 mg/dL (1.8-2.4)
[2020-06-27 17:19] LABS: CREATININE 1.2 mg/dL (0.55-1.3); PHOSPHOROUS 4.2 mg/dL (2.5-4.9)
[2020-06-27 17:21] LABS: BILIRUBIN,TOTAL 0.7 mg/dL (0.2-1)
[2020-06-27 17:27] LABS: TOT PROT 7.9 g/dl (6.4-8.2)
[2020-06-28] MEDS ORDERED: morphine SULFATE 4 MG/ML VIAL ONE ×2 (06:07→12:05)
[2020-06-28] MEDS ORDERED: morphine SULFATE 4 MG/ML VIAL IVPUSH ONE (06:15)
[2020-06-28] MEDS ORDERED: PIPERACILLIN/TAZOB 3.375 GM 3.375 GM/50 ML BAG IVPB ONE ×2 (06:48→11:47)
[2020-06-28] MEDS ORDERED: MORPHINE SULFATE 2 MG/ML VIAL IVPUSH PRN (06:49)
[2020-06-28] MEDS: PIPERACILLIN/TAZOB 3.375 GM 3.375 GM in DEXTROSE 5%-WATER - 50 ML IVPB SCH ×5 (06:52→19:09)
[2020-06-28] MEDS ORDERED: LACTATED RINGERS SOLUTION 1,000 ML/1,000 ML INFUS.BAG IV SCH ×2 (07:00→07:35)
[2020-06-28] MEDS ORDERED: ENOXAPARIN NA (PORCINE) 40 MG/0.4 ML DISP.SYRIN SQ SCH (10:00)
[2020-06-28] MEDS: morphine SULFATE 4 MG/ML VIAL IVPUSH PRN (12:15)
[2020-06-28 13:47] LABS: BASO % 0.2 % (0-2.0); EOS % 2.4 % (0-4.5); HEMATOCRIT 28.4 % (32.4-45.2); LYMPH % 7.9 % (8-40); MCH 26.2 pg (25.7-33.7); MCHC 31.9 g/dl (32.0-36.0); MEAN CELL VOLUME 82.2 fl (80-96); MEAN PLT VOLUME 6.9 fl (7.5-11.1); NEUT % 79.5 % (42.8-82.8); PLATELET COUNT 322 K/MM3 (134-434); RBC 3.45 M/mm3 (3.60-5.2); RDW 17.3 % (11.6-15.6); WHITE BLOOD COUNT 7.1 K/mm3 (4.0-10.0)
[2020-06-28 13:58] LABS: INR 1.24 (0.83-1.09); PROTHROMBIN TIME (PATIENT) 15.1 SEC (9.7-13.0)
[2020-06-28 14:01] LABS: ACTIVATED PTT 33.6 SECONDS (25.2-36.5)
[2020-06-28 14:10] LABS: BLOOD UREA NITROGEN 9.2 mg/dL (7-18); CALCIUM 8.3 mg/dL (8.5-10.1)
[2020-06-28 14:11] LABS: ALBUMIN 2.5 g/dl (3.4-5.0); MAGNESIUM 1.8 mg/dL (1.8-2.4)
[2020-06-28 14:14] LABS: CREATININE 0.6 mg/dL (0.55-1.3)
[2020-06-28 14:15] LABS: BILIRUBIN,TOTAL 1.4 mg/dL (0.2-1)
[2020-06-28 14:19] LABS: TOT PROT 5.6 g/dl (6.4-8.2)
[2020-06-28 14:37] LABS: POTASSIUM 3.9 mmol/L (3.5-5.1)
[2020-06-28] MEDS ORDERED: MORPHINE SULFATE 2 MG/ML VIAL ONE (21:52)
[2020-06-28] MEDS: IMIPENEM/CILASTATIN SODIUM 1,000 MG in SODIUM CHLORIDE 100 ML IVPB SCH (23:24)
[2020-06-29] MEDS ORDERED: morphine SULFATE 4 MG/ML VIAL ONE ×2 (02:00→06:17)
[2020-06-29] MEDS: morphine SULFATE 4 MG/ML VIAL IVPUSH PRN ×2 (02:06→06:21)
[2020-06-29] MEDS: IMIPENEM/CILASTATIN SODIUM 1,000 MG in SODIUM CHLORIDE 100 ML IVPB SCH (03:03)
[2020-06-29] MEDS ORDERED: LACTATED RINGERS SOLUTION 1,000 ML/1,000 ML INFUS.BAG IV SCH (05:45)
[2020-06-29 09:04] VITALS: BP 112/87; PULSE 107; TEMP 98.5
== END 2020-06-29 09:28 | disposition short-term general hospital (02) | DRG 282 ==
LOC: JER 16:17 → JERBED 17:52
PROVIDERS: ADMIT Internal Medicine; ATTEND Internal Medicine
DX: K85.91 Acute pancreatitis with uninfected necrosis, unspecified (principal); K86.3 Pseudocyst of pancreas
CPT/HCPCS: 36415; 71046-TC-FY; 74177-TC; 80053; 80061; 83690; 83721; 83735; 84100; 84703; 85025; 85610; 85730; 86850; 86900; 86901; 87040; 93005; 93010; 99285-25; C9803; J0131; Q9967; U0003